=== PATIENT | female | born 1985 | race Caucasian/White ===

== ENCOUNTER → 2021-05-13 | Outpatient (CLI) | payer OTHER ==
[2021-05-13 16:09] LABS: HEMOGLOBIN 12.7 gm/dl (12.3-15.3); RED BLOOD COUNT 4.06 M/UL (4.00-5.10); WHITE BLOOD COUNT 8.1 K/UL (4.5-11.0)
[2021-05-13 16:27] LABS: BUN/CREATININE RATIO 13 (0-10)
[2021-05-14 07:11] LABS: HIV SCREEN 4TH GENERATION WRFX Non Reactive (Non Reactive)
[2021-05-14 09:14] LABS: HBSAG SCREEN Negative (Negative); HCV ANTIBODY >11.0 (0.0-0.9)
[2021-05-14 17:09] LABS: TREPONEMA PALLIDUM ANTIBODIES Reactive (Non Reactive)
== END ==
LOC: LAB 13:46
PROVIDERS: Nurse Practitioner Family
DX: Z34.80 Encounter for supervision of other normal pregnancy, unspecified trimester (principal)
CPT/HCPCS: 36415; 80053; 84439; 84443; 85025; 86762; 86780; 86803; 86900; 86901; 87340; 87389

== ENCOUNTER 2021-08-15 04:31 | Inpatient (IN) | payer OTHER ==
[2021-08-15 05:26] LABS: HEMOGLOBIN 12.6 gm/dl (12.3-15.3); RED BLOOD COUNT 3.89 M/UL (4.00-5.10); WHITE BLOOD COUNT 11.3 K/UL (4.5-11.0)
[2021-08-15] MEDS ORDERED: IBUPROFEN600 MG PO (08:44)
[2021-08-15] MEDS ORDERED: FERROUS SULFAT325 M2 PO (08:44)
[2021-08-15] MEDS ORDERED: NIFEDIPINE ER30 M1 PO (08:44)
[2021-08-15] MEDS ORDERED: HYDROCODON-ACE1 EAC4 PO (08:44)
[2021-08-15] MEDS ORDERED: LABETALOL HCL200 MG PO (08:44)
[2021-08-16 06:38] LABS: HEMOGLOBIN 9.5 gm/dl (12.3-15.3)
[2021-08-16] MEDS ORDERED: DOCUSATE SODIU250 MG PO ×2 (14:52→15:40)
[2021-08-16] MEDS ORDERED: HYDROCODONE-AC1 EACH PO (15:40)
[2021-08-17 16:13] LABS: T PALLIDUM AB (FTA-AB) Reactive (Non Reactive)
[2021-08-17 17:08] LABS: RPR Reactive (Non Reactive); TREPONEMA PALLIDUM ANTIBODIES Reactive (Non Reactive)
[2021-08-30 10:11] LABS: ALPRAZOLAM Negative (Cutoff=100); AMPHETAMINE Positive (.); AMPHETAMINE GC/MS CONF 3702 ng/mL (Cutoff=500); AMPHETAMINES Positive (Cutoff=1000); AMPHETAMINES, URINE See Final Results ng/mL (Cutoff=1000); BARBITURATE Negative ng/mL (Cutoff=200); BENZODIAZEPINES Comment: ng/mL (Cutoff=100); BENZODIAZEPINES See Final Results ng/mL (Cutoff=200); CANNABINOIDS Negative ng/mL (Cutoff=20); CLONAZEPAM Negative (Cutoff=100); COCAINE (METABOLITE) Negative ng/mL (Cutoff=300); CODEINE Negative (Cutoff=300); CREATININE 199.8 mg/dL (20.0-300.0); FLURAZEPAM Negative (Cutoff=100); HYDROCODONE Positive (.); HYDROCODONE CONFIRM >3000 ng/mL (Cutoff=300); HYDROMORPHONE Positive (.); HYDROMORPHONE CONFIRM 1947 ng/mL (Cutoff=300); LORAZEPAM Negative (Cutoff=100); MEPERIDINE Negative ng/mL (Cutoff=200); METHADONE Negative ng/mL (Cutoff=300); METHAMPHETAMINE Positive (.); METHAMPHETAMINE GC/MS CONF >3000 ng/mL (Cutoff=500); MIDAZOLAM Comment: (.); MIDAZOLAM CONFIRM Comment: ng/mL (Cutoff=100); MORPHINE Negative (Cutoff=300); NORDIAZEPAM Negative (Cutoff=100); OPIATES Positive ng/mL (Cutoff=300); OPIATES See Final Results ng/mL (Cutoff=300); OXAZEPAM Negative (Cutoff=100); PHENCYCLIDINE Negative ng/mL (Cutoff=25); PROPOXYPHENE Negative ng/mL (Cutoff=300); TEMAZEPAM Negative (Cutoff=100); TRIAZOLAM Negative (Cutoff=100)
== END 2021-08-16 17:58 | disposition home or self-care (01) | DRG 787 ==
LOC: GENOP 04:31 → OB 07:26
PROVIDERS: ADMIT Obstetrics & Gynecology
PROC: 10D00Z1 Extraction of Products of Conception, Low, Open Approach (ICD-10-PCS; principal; 2021-08-15 05:37)
DX: O45.92 Premature separation of placenta, unspecified, second trimester (principal); O99.324 Drug use complicating childbirth; O10.92 Unspecified pre-existing hypertension complicating childbirth; Z20.822 Contact with and (suspected) exposure to COVID-19; O36.0920 Maternal care for other rhesus isoimmunization, second trimester, not applicable or unspecified; O98.52 Other viral diseases complicating childbirth; F15.10 Other stimulant abuse, uncomplicated; Z37.0 Single live birth; Z3A.26 26 weeks gestation of pregnancy; O76 Abnormality in fetal heart rate and rhythm complicating labor and delivery; B19.20 Unspecified viral hepatitis C without hepatic coma
CPT/HCPCS: 36415; 36430; 74018; 80307; 82247; 82248; 82565; 84450; 84460; 84550; 85014; 85018; 85025; 85379; 85384; 85610; 85730; 86592; 86780; 86850; 86900; 86901; 86920; J1170; J2790; J3475; J7120; P9016; U0002